=== PATIENT | female | born 1930 | race Caucasian/White ===

== ENCOUNTER 2016-12-10 23:09 | Inpatient (IN) | payer OTHER ==
[~2016-12-10] VITALS: Ht 152.4 cm; Wt 80.6 kg
[~2016-12-10 23:09] MED LIST: ADVIN25050 INH; AMBCR125 PO; AMLO-114 PO; ATV1 PO; CLOP1TAB15 PO; CMBIN INH; CTP2 PO; EFFSR75 PO; MULT-506 PO; PRED10TA PO
[2016-12-10] MEDS ORDERED: METHYLPREDNISOLONE 125 MG VIAL IV STA (23:27)
[2016-12-10] MEDS ORDERED: MAGNESIUM SULFATE 1GM / D5W 1 GM BAG IV STA (23:27)
[2016-12-10] MEDS ORDERED: ALBUT/IPRATROP 3MG/0.5MG NEB 3 ML VIAL INH ONE (23:30)
--- NOTE | 2016-12-10 23:30 | EMERGENCY ROOM VISIT NOTE ---
History Report prepared by Sergey: Agnes Moore Under the Supervision of: Dr. Tim Sinha M.D. First contact with patient: 23:22 Chief Complaint: RESPIRATORY PROBLEMS Stated Complaint: SHORTNESS OF BREATH History of Present Illness The patient is a 86 year old female who presents to the Emergency Room with complaints of constant respiratory problems beginning 2 months ago. She also complains of a cough and feeling weak. She states that her coughing is so bad that she is unable to fall asleep. The patient states that she has COPD and is on 2.5 L of Oxygen at home. Additionally, she takes Mucinex, and uses an inhaler and nebulizer. She also takes 81 mg of Aspirin daily. She reports that she was sick in August and was placed on 3 sets of antibiotics and prednisone. The patient saw a construction materials tester 4 days ago and had an echocardiogram done which was normal. Source of History: patient Onset: 2 months ago Position: other (global) Quality: other (respiratory problems) Timing: constant Associated Symptoms: + cough, + weakness Review of Systems See HPI for pertinent positives & negatives. A total of 10 systems reviewed and were otherwise negative. Past Medical & Surgical Medical Problems: (1) COPD (chronic obstructive pulmonary disease) (2) Hypertension Family History FH: CVA (cerebrovascular accident) Social History Marital Status: Current/Historical Medications Scheduled Albuterol Sulf (Proventil 0.083% 2.5MG/3ML), 2.5 MG INH BID Amlodipine (Norvasc), 10 MG PO DAILY Aspirin (Aspirin Ec), 81 MG PO DAILY Clonidine Hcl (Catapres), 0.2 MG PO BID Fluticasone Prop/Salmeterol (Advair Diskus 250/50 60 Dose), 1 PUFF INH BID Tiotropium [place] (Spiriva Handihaler), 1 CAP INH DAILY Scheduled PRN Albuterol Hfa (Ventolin Hfa), 2 PUFFS INH Q6H PRN for SOB/Wheezing Allergies Coded Allergies: Penicillins (Verified Allergy, Mild, RASH, 12/11/16) Hydrocodone (Verified Allergy, Unknown, 12/11/16) Physical Exam Vital Signs Date Time Temp Pulse Resp B/P (MAP) Pulse Ox O2 Delivery O2 Flow Rate FiO2 12/11/16 01:30 114 20 155/79 93 Nasal Cannula 4.0 12/11/16 01:00 113 25 101/48 98 Nebulizer 12/11/16 00:30 103 22 151/72 99 Nebulizer 12/11/16 00:00 100 17 141/62 92 Nasal Cannula 4.0 12/10/16 23:41 95 Nasal Cannula 4.0 12/10/16 23:30 100 24 96 Nasal Cannula 4.0 12/10/16 23:25 105 12/10/16 23:24 105 12/10/16 23:22 36.9 103 16 151/75 95 Nasal Cannula 4.0 12/10/16 23:22 95 Nasal Cannula 4.0 12/10/16 23:22 95 Nasal Cannula 4.0 Physical Exam GENERAL: Patient is a healthy-appearing well-nourished female HEAD: Normocephalic atraumatic EYES: Ocular movements intact pupils equal and react to light OROPHARYNX mucous membranes are moist no exudates present no erythema or edema present NECK: Supple no nuchal rigidity CHEST: Good equal expansion LUNGS: Bilateral wheezing. CARDIAC: Normal S1 and S2 ABDOMEN: Soft nontender no guarding BACK: No CVA tenderness EXTREMITIES: No pain upon palpation normal muscle strength in all groups no clubbing cyanosis or edema NEURO: Patient is following commands and answering questions appropriately. Alert and oriented x3 Cranial Nerves 2-12 grossly intact Medical Decision & Procedures ER Provider Diagnostic Interpretation: 1 view of chest as reviewed by me: No evidence of pneumonia, congestion, or pneumothorax Laboratory Results 12/10/16 22:45 Red Blood Count 3.93, Mean Corpuscular Volume 95.9, Mean Corpuscular Hemoglobin 29.5, Mean Corpuscular Hemoglobin Concent 30.8, Mean Platelet Volume 9.1, Neutrophils (%) (Auto) 73.6, Lymphocytes (%) (Auto) 16.0, Monocytes (%) (Auto) 8.2, Eosinophils (%) (Auto) 1.2, Basophils (%) (Auto) 0.1, Neutrophils # (Auto) 6.82, Lymphocytes # (Auto) 1.48, Monocytes # (Auto) 0.76, Eosinophils # (Auto) 0.11, Basophils # (Auto) 0.01 12/10/16 22:45 Test 12/10/16 00:00 12/10/16 22:45 Influenza Type A (RT-PCR) Neg for Influ A (NEG) Influenza Type A Antigen Neg for Influ A (NEG) Influenza Type B Antigen Neg for Influ B (NEG) Influenza Type B (RT-PCR) Neg for Influ B (NEG) White Blood Count 9.26 K/uL (4.8-10.8) Red Blood Count 3.93 M/uL (4.2-5.4) Hemoglobin 11.6 g/dL (12.0-16.0) Hematocrit 37.7 % (37-47) Mean Corpuscular Volume 95.9 fL (80-100) Mean Corpuscular Hemoglobin 29.5 pg (25-34) Mean Corpuscular Hemoglobin Concent 30.8 g/dl (32-36) Platelet Count 245 K/uL (130-400) Mean Platelet Volume 9.1 fL (7.4-10.4) Neutrophils (%) (Auto) 73.6 % Lymphocytes (%) (Auto) 16.0 % Monocytes (%) (Auto) 8.2 % Eosinophils (%) (Auto) 1.2 % Basophils (%) (Auto) 0.1 % Neutrophils # (Auto) 6.82 K/uL (1.4-6.5) Lymphocytes # (Auto) 1.48 K/uL (1.2-3.4) Monocytes # (Auto) 0.76 K/uL (0.11-0.59) Eosinophils # (Auto) 0.11 K/uL (0-0.5) Basophils # (Auto) 0.01 K/uL (0-0.2) RDW Standard Deviation 54.1 fL (36.4-46.3) RDW Coefficient of Variation 15.5 % (11.5-14.5) Immature Granulocyte % (Auto) 0.9 % Immature Granulocyte # (Auto) 0.08 K/uL (0.00-0.02) Prothrombin Time 9.4 SECONDS (9.0-12.0) Prothromb Time International Ratio 0.9 (0.9-1.1) Anion Gap 11.0 mmol/L (3-11) Est Creatinine Clear Calc Drug Dose 25.7 ml/min Estimated GFR () 36.2 Estimated GFR (Non- 31.2 BUN/Creatinine Ratio 12.0 (10-20) Calcium Level 8.5 mg/dl (8.5-10.1) Total Bilirubin 0.4 mg/dl (0.2-1) Aspartate Amino Transf (AST/SGOT) 19 U/L (15-37) Alanine Aminotransferase (ALT/SGPT) 28 U/L (12-78) Alkaline Phosphatase 56 U/L (45-117) Total Creatine Kinase 91 U/L (26-192) Creatine Kinase MB 1.8 ng/ml (0.5-3.6) Creatine Kinase MB Ratio 2.0 (0-3.0) Troponin I < 0.015 ng/ml (0-0.045) Pro-B-Type Natriuretic Peptide 163 pg/ml (0-1800) Total Protein 5.9 gm/dl (6.4-8.2) Albumin 2.9 gm/dl (3.4-5.0) Globulin 3.0 gm/dl (2.5-4.0) Albumin/Globulin Ratio 1.0 (0.9-2) Labs reviewed by ED physician. Medications Administered Medications (Trade) Dose Ordered Sig/Manuel Route Start Time Stop Time Status Last Admin Dose Admin Albuterol/ Ipratropium (Duoneb) 12 ml ONE ONCE INH 12/10/16 23:30 12/10/16 23:31 DC 12/10/16 00:08 12 ML Magnesium Sulfate (Magnesium Sulfate) 1 gm NOW STAT IV 12/10/16 23:27 12/10/16 23:31 DC 12/11/16 00:13 1 GM ECG Indication: SOB/dyspnea Rate (beats per minute): 101 Rhythm: sinus tachycardia Findings: no acute ischemic change, no ectopy ED Course 2323: Past medical records reviewed. The patient was evaluated in room C2. A complete history and physical examination was performed. 2327: Ordered Methylprednisolone Sodium Succinate 60 mg IV, Magnesium Sulfate 1 gm IV. 2330: Ordered Duoneb 12 ml INH. 0039: I discussed the patient's case with Dr. Beltran, he has agreed to evaluate the patient for further management and care. 0045: Upon reexamination the patient is resting. I discussed results and treatment plan with the patient. She verbalizes agreement and understanding. Medical Decision Blood Pressure Screening: Patient was found to have an elevated blood pressure and was referred to their primary care doctor for recheck and further treatment Medication Reconciliation: I attest that I have personally reviewed the patient' s current medication list. Etiologies such as infections, reactive airway disease, pneumonia, pneumothorax , COPD, CHF, cardiac ischemia, pulmonary embolism, musculoskeletal, gastrointestinal, as well as others were entertained. This is a 6-year-old female who presents emergency department complaining of shortness of breath. The patient is normally on 2 L of oxygen at home. She has been doctoring with her PCP for the past several months and trying multiple doses of prednisone as well as antibiotics. The patient has been having a steady decline since then. She recently had an echo of her heart done yesterday as well as a CT of the chest was performed several weeks ago. Chest x -ray does not show any evidence of pneumonia congestion or pneumothorax. The patient was given 125 mg Solu-Medrol by EMS. He was also given 1 mg of magnesium and given an hour-long breathing treatment. I did discuss the case with the hospitalist service who agreed to admit the patient. Patient was in agreement with the treatment plan. Consults Time Called: 19 Consulting Physician: Dr. Beltran Returned Call: [phone] I discussed the patient's case with Dr. Beltran, he has agreed to evaluate the patient for further management and care. Impression Primary Impression: Hypoxia Additional Impression: COPD exacerbation Scribe Attestation The scribe's documentation has been prepared under my direction and personally reviewed by me in its entirety. I confirm that the note above accurately reflects all work, treatment, procedures, and medical decision making performed by me. Departure Information Dispostion Being Evaluated By Hospitalist Referrals No Doctor, Assigned (PCP) Patient Instructions My [facility] Problem Qualifiers
[2016-12-10 23:55] LABS: BASO % 0.1 %; BASO ABS # 0.01 K/uL (0-0.2); COMPLETE YES; EOS % 1.2 %; HEMATOCRIT 37.7 % (37-47); IG% 0.9 %; LYMPH ABS # 1.48 K/uL (1.2-3.4); MEAN CELL VOLUME 95.9 fL (80-100); MEAN CORPUSCULAR HEMOGLOBIN 29.5 pg (25-34); MEAN CORPUSCULAR HGB CONC 30.8 g/dl (32-36); MEAN PLATELET VOLUME 9.1 fL (7.4-10.4); MONO % 8.2 %; NEUT % 73.6 %; PLATELET COUNT 245 K/uL (130-400); RED BLOOD COUNT 3.93 M/uL (4.2-5.4); WHITE BLOOD COUNT 9.26 K/uL (4.8-10.8)
[2016-12-11] VITALS (11 sets, daily range): BP systolic 109–151; BP diastolic 61–76; PULSE 82–120; TEMP 36.4–37.6; O2SAT 91–97; Ht 152.4 cm; Wt 80.6 kg
[2016-12-11 00:05] LABS: INR 0.9 (0.9-1.1); PROTHROMBIN TIME (PATIENT) 9.4 SECONDS (9.0-12.0)
[2016-12-11] MEDS ORDERED: ASPI81TA28 PO (00:28)
[2016-12-11] MEDS ORDERED: VNTHFA/IN INH (00:28)
[2016-12-11] MEDS ORDERED: CLON0.2T11 PO (00:28)
[2016-12-11] MEDS ORDERED: SPRIN/30 INH (00:29)
[2016-12-11] MEDS ORDERED: ALBINS/ INH (00:29)
[2016-12-11] MEDS ORDERED: ADVIN25/60 INH (00:29)
[2016-12-11 00:31] LABS: ALKALINE PHOSPHATASE 56 U/L (45-117); ALT/SGPT 28 U/L (12-78); BLOOD UREA NITROGEN 18 mg/dl (7-18); CALCIUM 8.5 mg/dl (8.5-10.1); CARBON DIOXIDE 24 mmol/L (21-32); CHLORIDE 108 mmol/L (98-107); GLUCOSE 131 mg/dl (70-99)
[2016-12-11 00:34] LABS: POTASSIUM 4.6 mmol/L (3.5-5.1); SODIUM 143 mmol/L (136-145)
[2016-12-11 00:43] LABS: AST/SGOT 19 U/L (15-37)
[2016-12-11] MEDS ORDERED: MAGNESIUM HYDROXIDE SUSP 30 ML UDC PO PRN (01:15)
[2016-12-11] MEDS ORDERED: ONDANSETRON INJ 2 MG/ML 2 ML VIAL IV PRN (01:15)
[2016-12-11] MEDS ORDERED: ALUMINUM/MAGNESIUM/SIMETH (MAALOX MAX) 30 ML UDC PO PRN (01:15)
[2016-12-11] MEDS ORDERED: ACETAMINOPHEN 325 MG TAB PO PRN (01:15)
[2016-12-11 01:38] LABS: INFLUENZA A PCR Neg for Influ A (NEG); INFLUENZA B PCR Neg for Influ B (NEG)
--- NOTE | 2016-12-11 02:54 | History and Physical ---
History & Physical Date & Time of Service: Dec 11, 2016 at 02:39 Chief Complaint: Copd Exacerbation Primary Care Physician: Gabrielle Nolen M.D. History of Present Illness Source: patient, family, clinic records This is an 86 year old female with a PMH of severe COPD and chronic respiratory failure on 2L of continuous O2, HTN, HLD, CKD stage 3 - presents with worsening shortness of breath - has had issues with her breathing since August. Has been given doxycycline, prednisone amongst other medications - has followed with pulmonology as well. 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 Currently, breathing is stable; no chest pain, no fevers/chills, no nausea/ vomiting/diarrhea. Family History FH: CVA (cerebrovascular accident) Social History Smoking Status: Former Smoker Marital Status: Immunizations History of Influenza Vaccine: Yes Influenza Vaccine Date: Mar 14, 2007 History of Tetanus Vaccine?: Unknown History of Pneumococcal: Yes Pneumococcal Date: Mar 14, 2007 History of Hepatitis B Vaccine: No Multi-Drug Resistant Organisms History of MDRO: No Allergies Coded Allergies: Penicillins (Verified Allergy, Mild, RASH, 12/11/16) Hydrocodone (Verified Allergy, Unknown, 12/11/16) Home Medications Scheduled Albuterol Sulf (Proventil 0.083% 2.5MG/3ML), 2.5 MG INH BID Amlodipine (Norvasc), 10 MG PO DAILY Aspirin (Aspirin Ec), 81 MG PO DAILY Clonidine Hcl (Catapres), 0.2 MG PO BID Fluticasone Prop/Salmeterol (Advair Diskus 250/50 60 Dose), 1 PUFF INH BID Tiotropium [place] (Spiriva Handihaler), 1 CAP INH DAILY Scheduled PRN Albuterol Hfa (Ventolin Hfa), 2 PUFFS INH Q6H PRN for SOB/Wheezing Review of Systems Constitutional: No fever, No chills, No sweats, No weakness, No fatigue Respiratory: + cough, + sputum, + wheezing, + shortness of breath, + dyspnea on exertion, + dyspnea at rest, No hemoptysis Cardiovascular: + edema (intermittent), No chest pain, No orthopnea, No palpitations Abdomen: No pain, No nausea, No vomiting, No diarrhea, No constipation, No GI bleeding Genitourinary - Female: + urinary frequency, No dysuria, No urinary urgency, No urinary incontinence, No urinary retention, No hematuria Neurologic: No weakness Psychiatric: No depression symptoms, No anxiety, No insomnia Hematologic / Lymphatic: No abnormal bleeding/bruising Integumentary: No rash Allergic / Immunologic: No environmental allergies, No seasonal allergies Physical Exam Vital Signs Date Time Temp Pulse Resp B/P (MAP) Pulse Ox O2 Delivery O2 Flow Rate FiO2 12/11/16 02:19 36.4 120 24 151/67 91 Nasal Cannula 4.0 12/11/16 01:30 114 20 155/79 93 Nasal Cannula 4.0 12/11/16 01:00 113 25 101/48 98 Nebulizer 12/11/16 00:30 103 22 151/72 99 Nebulizer 12/11/16 00:00 100 17 141/62 92 Nasal Cannula 4.0 12/10/16 23:41 95 Nasal Cannula 4.0 12/10/16 23:30 100 24 96 Nasal Cannula 4.0 12/10/16 23:25 105 12/10/16 23:24 105 12/10/16 23:22 36.9 103 16 151/75 95 Nasal Cannula 4.0 12/10/16 23:22 95 Nasal Cannula 4.0 12/10/16 23:22 95 Nasal Cannula 4.0 General Appearance: + mild distress Head: normocephalic, atraumatic Eyes: normal inspection ENT: hearing grossly normal Neck: supple Respiratory/Chest: + respiratory distress (mild respiratory distress), + decreased breath sounds, + wheezing Cardiovascular: no edema, no murmur, + tachycardia Abdomen/GI: normal bowel sounds, non tender, soft Extremities/Musculoskelatal: normal inspection, no calf tenderness, normal capillary refill, no pedal edema, normal range of motion Neurologic/Psych: no motor/sensory deficits, alert, normal mood/affect Skin: normal color Lymphatic: no adenopathy Diagnostics Laboratory Results Results Past 24 Hours Test 12/10/16 22:45 Range/Units White Blood Count 9.26 4.8-10.8 K/uL Red Blood Count 3.93 4.2-5.4 M/uL Hemoglobin 11.6 12.0-16.0 g/dL Hematocrit 37.7 37-47 % Mean Corpuscular Volume 95.9 80-100 fL Mean Corpuscular Hemoglobin 29.5 25-34 pg Mean Corpuscular Hemoglobin Concent 30.8 32-36 g/dl Platelet Count 245 130-400 K/uL Mean Platelet Volume 9.1 7.4-10.4 fL Neutrophils (%) (Auto) 73.6 % Lymphocytes (%) (Auto) 16.0 % Monocytes (%) (Auto) 8.2 % Eosinophils (%) (Auto) 1.2 % Basophils (%) (Auto) 0.1 % Neutrophils # (Auto) 6.82 1.4-6.5 K/uL Lymphocytes # (Auto) 1.48 1.2-3.4 K/uL Monocytes # (Auto) 0.76 0.11-0.59 K/uL Eosinophils # (Auto) 0.11 0-0.5 K/uL Basophils # (Auto) 0.01 0-0.2 K/uL RDW Standard Deviation 54.1 36.4-46.3 fL RDW Coefficient of Variation 15.5 11.5-14.5 % Immature Granulocyte % (Auto) 0.9 % Immature Granulocyte # (Auto) 0.08 0.00-0.02 K/uL Prothrombin Time 9.4 9.0-12.0 SECONDS Prothromb Time International Ratio 0.9 0.9-1.1 Sodium Level 143 136-145 mmol/L Potassium Level 4.6 3.5-5.1 mmol/L Chloride Level 108 98-107 mmol/L Carbon Dioxide Level 24 21-32 mmol/L Anion Gap 11.0 3-11 mmol/L Blood Urea Nitrogen 18 7-18 mg/dl Creatinine 1.50 0.60-1.20 mg/dl Est Creatinine Clear Calc Drug Dose 25.7 ml/min Estimated GFR () 36.2 Estimated GFR (Non- 31.2 BUN/Creatinine Ratio 12.0 10-20 Random Glucose 131 70-99 mg/dl Calcium Level 8.5 8.5-10.1 mg/dl Total Bilirubin 0.4 0.2-1 mg/dl Aspartate Amino Transf (AST/SGOT) 19 15-37 U/L Alanine Aminotransferase (ALT/SGPT) 28 12-78 U/L Alkaline Phosphatase 56 45-117 U/L Total Creatine Kinase 91 26-192 U/L Creatine Kinase MB 1.8 0.5-3.6 ng/ml Creatine Kinase MB Ratio 2.0 0-3.0 Troponin I < 0.015 0-0.045 ng/ml Pro-B-Type Natriuretic Peptide 163 0-1800 pg/ml Total Protein 5.9 6.4-8.2 gm/dl Albumin 2.9 3.4-5.0 gm/dl Globulin 3.0 2.5-4.0 gm/dl Albumin/Globulin Ratio 1.0 0.9-2 Impression Assessment and Plan This is an 86 year old female with a PMH of severe COPD and chronic respiratory failure on 2L of continuous O2, HTN, HLD, CKD stage 3 with COPD exacerbation Acute COPD Exacerbation Acute on Chronic Respiratory Failure +wheezing, worsening shortness of breath hypoxia on admission; uses 2.5L O2 continuously at baseline, now up to 3-4L will give solu-medrol 60mg q8 no abx. for now Xopenox nebulization pulm consultation placed Sinus Tachycardia likely due to solu-medrol and b-agonist use monitor in tele can likely transfer to med/surg once HRs improve CKD stage 3 creatinine at baseline avoid nephrotoxic agents if able HTN continue amlodipine and clonidine blood pressure stable DVT ppx subq heparin FULL CODE Advanced Directives Existing Living Will: Yes Existing Power of Yard Switcher: Yes VTE Prophylaxis VTE Risk Assessment Done? Y/N: Yes Risk Level: Moderate
[2016-12-11] MEDS: LEVALBUTEROL 1.25MG/3ML NEB INH SCH ×4 (03:00→19:20)
[2016-12-11 05:55] LABS: HEMATOCRIT 39.1 % (37-47); MEAN CELL VOLUME 95.1 fL (80-100); MEAN CORPUSCULAR HEMOGLOBIN 29.7 pg (25-34); MEAN CORPUSCULAR HGB CONC 31.2 g/dl (32-36); MEAN PLATELET VOLUME 9.5 fL (7.4-10.4); PLATELET COUNT 208 K/uL (130-400); RED BLOOD COUNT 4.11 M/uL (4.2-5.4); WHITE BLOOD COUNT 10.03 K/uL (4.8-10.8)
[2016-12-11] MEDS ORDERED: METHYLPREDNISOLONE IV 60 MG in SYRINGE 0 ML IV SCH (06:00)
[2016-12-11] MEDS: HEPARIN SOD 5000 UNIT/0.5 ML CARP SQ SCH ×3 (06:08→21:41)
--- NOTE | 2016-12-11 06:23 | DIAGNOSTIC IMAGING REPORT ---
CHEST ONE VIEW PORTABLE CLINICAL HISTORY: pt c/o SOB COMPARISON STUDY 10/13/2007 FINDINGS: Mild bibasilar atelectasis. Lungs otherwise are clear. Minimal cardiac enlargement. IMPRESSION: Mild bibasilar atelectasis. Electronically signed by: Keith Bingham M.D. 12/11/2016 6:22 AM Dictated Date/Time: 12/11/2016 6:17 AM
[2016-12-11 06:34] LABS: BUN/CREATININE RATIO 14.1 (10-20); CALCIUM 8.7 mg/dl (8.5-10.1); CREATININE 1.4 mg/dl (0.60-1.20); POTASSIUM 4.1 mmol/L (3.5-5.1)
[2016-12-11] MEDS: TIOTROPIUM BROMIDE 5 PUFF/90 MCG INH INH SCH (08:13)
[2016-12-11] MEDS: ASPIRIN 81 MG ECTAB PO SCH (08:14)
[2016-12-11] MEDS: AMLODIPINE BESYLATE 5 MG TAB PO SCH (08:14)
[2016-12-11] MEDS: GUAIFENESIN 600 MG TABCR PO SCH ×2 (08:14→21:34)
[2016-12-11] MEDS: CLONIDINE HCL 0.1 MG TAB PO SCH ×2 (08:15→21:37)
[2016-12-11] MEDS ORDERED: FLUTICASONE/SALMETEROL 250/50 (ADVAIR) 14 PUFF/1 INHALER INH SCH (09:00)
--- NOTE | 2016-12-11 10:19 | Progress Note ---
Internal Med Progress Note Date of Service: Dec 11, 2016. Provider Documentation: SUBJECTIVE: mentions that SOB has improved still has congestions back of her throat feels cough is stuck there , can not cough it out has persisted dry cough unable to sleep due to symptom no fever or chills OBJECTIVE: Vital Signs-as noted below Exam: General-no sign of distress Eyes-sclera non icteric ENT-nad Neck-nad Lungs-no rales or wheeze noted Heart-tachycardic Abdomen-soft, non tender Extremities-no lower ext edema Neuro-AAO x3, no focal deficit Lab data as noted below. ASSESSMENT & PLAN: Acute COPD Exacerbation Acute on Chronic Respiratory Failure presented with complain of dry non productive cough for past few months seen by PCP and out pt [employer] [place] [employer] s/p prednisone and oral Doxycycline tx -no improvement mentions after staring on PPI for GERD gave her some benefit presented with hypoxia on admission; uses 2.5L O2 continuously at baseline, now up to 3-4L improved now on 2 L 02 no wheeze noted will d/c Solu-Medrol 60mg q8 PO Prednisone on Mucinex , ordered for flutter valve for clear of secretions no abx. for now-Cxray shows bibasilar atelectasis Xopenox nebulization pulm consultation placed Sinus Tachycardia likely due to solu-medrol and b-agonist use started on PO Prednisone monitor in tele can likely transfer to med/surg once HRs improve CKD stage 3 creatinine at baseline avoid nephrotoxic agents if able HTN continue amlodipine and clonidine blood pressure stable DVT ppx subq heparin FULL CODE DISPOSITION to home when medically stable medicine follow up with Dr Nolen follows with pulmonology at [facility] Vital Signs: Date Time Temp Pulse Resp B/P (MAP) Pulse Ox O2 Delivery O2 Flow Rate FiO2 12/11/16 08:00 Nasal Cannula 2.0 12/11/16 07:16 36.9 105 18 144/72 (96) 93 4.0 12/11/16 07:00 82 18 97 Nasal Cannula 4.0 12/11/16 04:00 Nasal Cannula 4.0 12/11/16 03:45 37.2 110 20 126/62 (83) 91 Nasal Cannula 4.0 12/11/16 02:19 36.4 120 24 151/67 91 Nasal Cannula 4.0 12/11/16 01:30 114 20 155/79 93 Nasal Cannula 4.0 12/11/16 01:00 113 25 101/48 98 Nebulizer 12/11/16 00:30 103 22 151/72 99 Nebulizer 12/11/16 00:00 100 17 141/62 92 Nasal Cannula 4.0 12/10/16 23:41 95 Nasal Cannula 4.0 12/10/16 23:30 100 24 96 Nasal Cannula 4.0 12/10/16 23:25 105 12/10/16 23:24 105 12/10/16 23:22 36.9 103 16 151/75 95 Nasal Cannula 4.0 12/10/16 23:22 95 Nasal Cannula 4.0 12/10/16 23:22 95 Nasal Cannula 4.0 Lab Results: Results Past 24 Hours Test 12/10/16 22:45 12/11/16 05:08 Range/Units White Blood Count 9.26 10.03 4.8-10.8 K/uL Red Blood Count 3.93 4.11 4.2-5.4 M/uL Hemoglobin 11.6 12.2 12.0-16.0 g/dL Hematocrit 37.7 39.1 37-47 % Mean Corpuscular Volume 95.9 95.1 80-100 fL Mean Corpuscular Hemoglobin 29.5 29.7 25-34 pg Mean Corpuscular Hemoglobin Concent 30.8 31.2 32-36 g/dl Platelet Count 245 208 130-400 K/uL Mean Platelet Volume 9.1 9.5 7.4-10.4 fL Neutrophils (%) (Auto) 73.6 % Lymphocytes (%) (Auto) 16.0 % Monocytes (%) (Auto) 8.2 % Eosinophils (%) (Auto) 1.2 % Basophils (%) (Auto) 0.1 % Neutrophils # (Auto) 6.82 1.4-6.5 K/uL Lymphocytes # (Auto) 1.48 1.2-3.4 K/uL Monocytes # (Auto) 0.76 0.11-0.59 K/uL Eosinophils # (Auto) 0.11 0-0.5 K/uL Basophils # (Auto) 0.01 0-0.2 K/uL RDW Standard Deviation 54.1 53.4 36.4-46.3 fL RDW Coefficient of Variation 15.5 15.3 11.5-14.5 % Immature Granulocyte % (Auto) 0.9 % Immature Granulocyte # (Auto) 0.08 0.00-0.02 K/uL Prothrombin Time 9.4 9.0-12.0 SECONDS Prothromb Time International Ratio 0.9 0.9-1.1 Sodium Level 143 139 136-145 mmol/L Potassium Level 4.6 4.1 3.5-5.1 mmol/L Chloride Level 108 107 98-107 mmol/L Carbon Dioxide Level 24 23 21-32 mmol/L Anion Gap 11.0 9.0 3-11 mmol/L Blood Urea Nitrogen 18 20 7-18 mg/dl Creatinine 1.50 1.40 0.60-1.20 mg/dl Est Creatinine Clear Calc Drug Dose 25.7 27.1 ml/min Estimated GFR () 36.2 39.3 Estimated GFR (Non- 31.2 33.9 BUN/Creatinine Ratio 12.0 14.1 10-20 Random Glucose 131 246 70-99 mg/dl Calcium Level 8.5 8.7 8.5-10.1 mg/dl Total Bilirubin 0.4 0.2-1 mg/dl Aspartate Amino Transf (AST/SGOT) 19 15-37 U/L Alanine Aminotransferase (ALT/SGPT) 28 12-78 U/L Alkaline Phosphatase 56 45-117 U/L Total Creatine Kinase 91 26-192 U/L Creatine Kinase MB 1.8 0.5-3.6 ng/ml Creatine Kinase MB Ratio 2.0 0-3.0 Troponin I < 0.015 0-0.045 ng/ml Pro-B-Type Natriuretic Peptide 163 0-1800 pg/ml Total Protein 5.9 6.4-8.2 gm/dl Albumin 2.9 3.4-5.0 gm/dl Globulin 3.0 2.5-4.0 gm/dl Albumin/Globulin Ratio 1.0 0.9-2
[2016-12-11] MEDS ORDERED: COUGH DROP (SUGAR FREE) LOZ 24 LOZ/1 BOX ONE (11:27)
--- NOTE | 2016-12-11 17:58 | Pulmonary Consultation ---
History General Date of Service: Dec 11, 2016. Stated Complaint: Copd Exacerbation HPI The patient is a 86 year old female who presents to [facility] with complaints of Copd Exacerbation. The patient's primary care provider is Gabrielle Nolen M.D.. Ms. Camacho is an 86 year old female history of severe COPD on LTOT of 2L NC, HTN, HLD, CKD stage 3 who present with worsening shortness of breath and dyspnea on exertion. She admits to dry persistent cough associate with nonproductive sputum. She has been on recently treated with doxycyline and taper of prednisone over the last several months. She has been on prednisone 10 mg for several months. She states that she is compliant with pulmonary medications which include Spriva, Advair 250/50 and albuterol prn. Prior to August, she had was able to walk around the house and perform activities of daily living. However, over the last few weeks she has had decreased ET to few feet in the house. She uses walker seat to ambulate. She states that she recently had PFT and TTE, but is unsure of the results. Was prescribed PPI that provided some relief. She denies any fever, chills, chest pain or palpitations, but states that she has no longer can lay flat in bed and falls asleep in chair. She has noticed that she also has increase bilateral lower extremity swelling and edema over the last week. She follows up at [facility] and sees Dr. Nam Nolasco for pulmonology. Previous admission in 2006, she had bronchoscopy and laryngoscopy that showed severe trachobronchitis and chronic inflammation of the vocal cords. In the ED, initial VS were significant for BP 151/75, P 103-120, RR 16-24, Sao2 91-96% on 4L NC. CXR showed bibasilar atelectasis. She admitted for COPD exacerbation. Currently she is on prednisone 40 mg, guafenison 600 mg, Advair 250/50, Spriva and Xopenex. At the time of my examination, she is feeling much better. Denies any shortness of breath. Historian: patient, family Onset: other (Progressive over several months) Severity: moderate Complaint Status: improved, persistent Modifying Factors: exertion Review of Systems Constitutional: reports: weight gain Eyes: reports: no symptoms ENT: reports: sore throat Cardiovascular: reports: as stated in HPI, chest tightness Respiratory: reports: cough, orthopnea, shortness of breath, wheezing, THOMPSON, PND Gastrointestinal: reports: no symptoms Genitourinary - Female: reports: urinary frequency, urinary urgency Musculoskeletal: reports: no symptoms Integumentary: reports: no symptoms Neurologic: reports: no symptoms Psychiatric: reports: no symptoms Endocrine: no symptoms Hematologic / Lymphatic: no symptoms Allergic / Immunologic: denies: environmental allergies, seasonal allergies All Other Symptoms All Other Systems: Reviewed and Negative Past Medical History Past Medical History: COPD, GERD, hypertension, lung disease, renal disease Past Surgical History: Bronchoscopy 2006 Laryngoscopy with biopsy 2006 Family History FH: CVA (cerebrovascular accident) Social History Hx Tobacco Use In Past Year?: No Smoking Status: Former Smoker (Quit 6 years ago. 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 Immunizations History of Influenza Vaccine: Yes Influenza Vaccine Date: Mar 14, 2007 History of Tetanus Vaccine?: Unknown History of Pneumococcal: Yes Pneumococcal Date: Mar 14, 2007 History of Hepatitis B Vaccine: No History of MDRO History of MDRO: No Allergies Coded Allergies: Penicillins (Verified Allergy, Mild, RASH, 12/11/16) Hydrocodone (Verified Allergy, Unknown, 12/11/16) Current Medications Reported Home Medications Medications Dose Route/Sig Max Daily Dose Days Date Category Spiriva Handihaler (Tiotropium Winston) 30 Puff/540 Mcg Aerp 1 Cap INH DAILY 12/11/16 Reported Advair Diskus 250/50 60 Dose (Fluticasone Prop/Salmeterol) 1 Ea Aerp 1 Puff INH BID 12/11/16 Reported Proventil 0.083% 2.5MG/3ML (Albuterol Sulf) 2.5 Mg/3 Ml Nebu 2.5 Mg INH BID 12/11/16 Reported Ventolin Hfa (Albuterol) 200 Puffs/68677 Mcg Aers 2 Puffs INH Q6H PRN 12/11/16 Reported Aspirin Ec (Aspirin) 81 Mg Tab 81 Mg PO DAILY 12/11/16 Reported Catapres (Clonidine Hcl) 0.2 Mg Tab 0.2 Mg PO BID 7/11/17 Reported Norvasc (Amlodipine Besylate) 10 Mg Tab 10 Mg PO DAILY 10/09/06 Reported Physical Physical Exam Vital Signs: Date Time Temp Pulse Resp B/P (MAP) Pulse Ox O2 Delivery O2 Flow Rate FiO2 12/11/16 16:01 94 Nasal Cannula 2.0 12/11/16 15:38 37.6 98 20 111/74 (86) 94 Nasal Cannula 2.0 12/11/16 14:32 88 14 96 Nasal Cannula 4.0 12/11/16 14:00 Nasal Cannula 2.0 12/11/16 13:52 36.5 97 18 125/61 (82) 94 2.0 12/11/16 12:00 Nasal Cannula 2.0 12/11/16 11:38 36.7 103 16 131/76 (94) 93 2.0 12/11/16 08:00 Nasal Cannula 2.0 12/11/16 07:16 36.9 105 18 144/72 (96) 93 4.0 12/11/16 07:00 82 18 97 Nasal Cannula 4.0 12/11/16 04:00 Nasal Cannula 4.0 12/11/16 03:45 37.2 110 20 126/62 (83) 91 Nasal Cannula 4.0 12/11/16 02:19 36.4 120 24 151/67 91 Nasal Cannula 4.0 12/11/16 01:30 114 20 155/79 93 Nasal Cannula 4.0 12/11/16 01:00 113 25 101/48 98 Nebulizer 12/11/16 00:30 103 22 151/72 99 Nebulizer 12/11/16 00:00 100 17 141/62 92 Nasal Cannula 4.0 12/10/16 23:41 95 Nasal Cannula 4.0 12/10/16 23:30 100 24 96 Nasal Cannula 4.0 12/10/16 23:25 105 12/10/16 23:24 105 12/10/16 23:22 36.9 103 16 151/75 95 Nasal Cannula 4.0 12/10/16 23:22 95 Nasal Cannula 4.0 12/10/16 23:22 95 Nasal Cannula 4.0 General Appearance: WELL-APPEARING, NO APPARENT DISTRESS (Speaking in full sentences, nonlabored breathing) Head: NORMOCEPHALIC, ATRAUMATIC Eyes: PERRLA, EOMI, SCLERAE NORMAL, CONJUNCTIVAE NORMAL ENT: NORMAL MOUTH EXAM, NORMAL THROAT EXAM Neck: NORMAL RANGE OF MOTION, SUPPLE Respiratory: BREATH SOUNDS NORMAL, CLEAR TO AUSCULTATION, NO RESPIRATORY DISTRESS, NO TENDERNESS Cardiovasular: REGULAR RATE/RHYTHM, NORMAL S1S2, NO GALLOP, NO RUB Abdomen: NON TENDER, NORMAL BOWEL SOUNDS, NO REBOUND, NO MASSES, NO GUARDING Lower Extremities: edema Edema: RLE, Bilateral LE (3+) Pulses: dorsalis pedis (R) (2+), dorsalis pedis (L) (2+) Neuro: ALERT, ORIENTED x 3 Psychiatric: NORMAL AFFECT, NO SUICIDAL IDEATION Diagnostics Labs Results Past 24 Hours Test 12/10/16 22:45 12/11/16 05:08 Range/Units White Blood Count 9.26 10.03 4.8-10.8 K/uL Red Blood Count 3.93 4.11 4.2-5.4 M/uL Hemoglobin 11.6 12.2 12.0-16.0 g/dL Hematocrit 37.7 39.1 37-47 % Mean Corpuscular Volume 95.9 95.1 80-100 fL Mean Corpuscular Hemoglobin 29.5 29.7 25-34 pg Mean Corpuscular Hemoglobin Concent 30.8 31.2 32-36 g/dl Platelet Count 245 208 130-400 K/uL Mean Platelet Volume 9.1 9.5 7.4-10.4 fL Neutrophils (%) (Auto) 73.6 % Lymphocytes (%) (Auto) 16.0 % Monocytes (%) (Auto) 8.2 % Eosinophils (%) (Auto) 1.2 % Basophils (%) (Auto) 0.1 % Neutrophils # (Auto) 6.82 1.4-6.5 K/uL Lymphocytes # (Auto) 1.48 1.2-3.4 K/uL Monocytes # (Auto) 0.76 0.11-0.59 K/uL Eosinophils # (Auto) 0.11 0-0.5 K/uL Basophils # (Auto) 0.01 0-0.2 K/uL RDW Standard Deviation 54.1 53.4 36.4-46.3 fL RDW Coefficient of Variation 15.5 15.3 11.5-14.5 % Immature Granulocyte % (Auto) 0.9 % Immature Granulocyte # (Auto) 0.08 0.00-0.02 K/uL Prothrombin Time 9.4 9.0-12.0 SECONDS Prothromb Time International Ratio 0.9 0.9-1.1 Sodium Level 143 139 136-145 mmol/L Potassium Level 4.6 4.1 3.5-5.1 mmol/L Chloride Level 108 107 98-107 mmol/L Carbon Dioxide Level 24 23 21-32 mmol/L Anion Gap 11.0 9.0 3-11 mmol/L Blood Urea Nitrogen 18 20 7-18 mg/dl Creatinine 1.50 1.40 0.60-1.20 mg/dl Est Creatinine Clear Calc Drug Dose 25.7 27.1 ml/min Estimated GFR () 36.2 39.3 Estimated GFR (Non- 31.2 33.9 BUN/Creatinine Ratio 12.0 14.1 10-20 Random Glucose 131 246 70-99 mg/dl Calcium Level 8.5 8.7 8.5-10.1 mg/dl Total Bilirubin 0.4 0.2-1 mg/dl Aspartate Amino Transf (AST/SGOT) 19 15-37 U/L Alanine Aminotransferase (ALT/SGPT) 28 12-78 U/L Alkaline Phosphatase 56 45-117 U/L Total Creatine Kinase 91 26-192 U/L Creatine Kinase MB 1.8 0.5-3.6 ng/ml Creatine Kinase MB Ratio 2.0 0-3.0 Troponin I < 0.015 0-0.045 ng/ml Pro-B-Type Natriuretic Peptide 163 0-1800 pg/ml Total Protein 5.9 6.4-8.2 gm/dl Albumin 2.9 3.4-5.0 gm/dl Globulin 3.0 2.5-4.0 gm/dl Albumin/Globulin Ratio 1.0 0.9-2 Diagnostic Radiology CXR: 12/11/2016 Mild bibasilar atelectasis. Impression Assessment and Plan Acute on chronic hypoxemic respiratory failure COPD exacerbation Recommendations -Lower extremity doppler to rule out VTE . Pulmonary emboli are often missed in patients with COPD exacerbations. -TTE to rule evaluate EF and evaluate for pulmonary HTN as she is has chronic hypoxia. With low BNP however, I suspect the systolic CHF in unlikely. -Agree with bronchodilators as well as prednisone 40 mg daily. Would increase Advair from 250/50 to 500/50. Continue with Spiriva. -Will start empiric treatment with Levaquin for one week. Will start IV, but can switch to PO if clinically improves. -Follow up sputum cultures. -Continue with supplemental O2 to maintain SaO2 88-92% as well as flutter valve for pulmonary toilet. -This is most likely progression of COPD. I would like to obtain records for full PFT as this would done as an outpatient in September. This would help determine the severity of her disease and her baseline. -Continue medical management per primary team. Please feel free to contact me if you have any further question. Appreciate the consult.
[2016-12-11] MEDS ORDERED: LEVOFLOXACIN / D5W 500 MG in PREMIXED IN D5W 100 ML IV SCH (18:30)
--- NOTE | 2016-12-11 19:29 | DIAGNOSTIC IMAGING REPORT ---
ULTRASOUND VENOUS DOPPLER LWR EXT BILA CLINICAL HISTORY: Leg swelling COMPARISON STUDY: No previous studies for comparison. FINDINGS: Real-time and color flow Doppler imaging were performed. Flow was seen within the femoral, popliteal and calf veins with no intraluminal thrombus demonstrated. The saphenous vein is patent. There is a nonspecific 17 mm cystic lesion with thin the right anterior upper thigh. IMPRESSION: No evidence of lower extremity DVT. Electronically signed by: Kaz Go M.D. 12/11/2016 7:28 PM Dictated Date/Time: 12/11/2016 7:26 PM
[2016-12-11] MEDS: FLUTICASONE/SALMETEROL (ADVAIR) 500/50 INH 14 PUFF INH SCH (21:34)
[2016-12-12] MEDS: LEVALBUTEROL 1.25MG/3ML NEB INH SCH ×4 (02:22→19:21)
[2016-12-12] MEDS: HEPARIN SOD 5000 UNIT/0.5 ML CARP SQ SCH ×2 (05:50→13:48)
[2016-12-12 07:17] VITALS: BP 121/85; PULSE 85; PULSE 87; TEMP 36.5; O2SAT 93
[2016-12-12] MEDS: TIOTROPIUM BROMIDE 5 PUFF/90 MCG INH INH SCH (08:46)
[2016-12-12] MEDS: FLUTICASONE/SALMETEROL (ADVAIR) 500/50 INH 14 PUFF INH SCH ×2 (08:46→20:07)
[2016-12-12] MEDS: GUAIFENESIN 600 MG TABCR PO SCH ×2 (08:47→20:07)
[2016-12-12] MEDS: AMLODIPINE BESYLATE 5 MG TAB PO SCH (08:48)
[2016-12-12] MEDS: ASPIRIN 81 MG ECTAB PO SCH (08:48)
[2016-12-12] MEDS: CLONIDINE HCL 0.1 MG TAB PO SCH ×2 (08:48→20:07)
--- NOTE | 2016-12-12 11:31 | ECHOCARDIOGRAM REPORT ---
*NOTICE TO RECEIVING [employer] AG[employer]Y This information is strictly Confidential and protected under [place] law. [place] law prohibits you from making any further disclosure of this information unless further disclosure is expressly permitted by the written consent of the person to whom it pertains or is authorized by law. A general authorization for the release of medical or other information is not sufficient for this purpose. Hospital accepts no responsibility if the information is made available to any other person, INCLUDING THE PATIENT. Interpretation Summary * Name: Isis FLANNERY NOVEMBER Study Date: 12/12/2016 07:34 AM BP: 155/79 mmHg * Patient Location: .[id number]\1 HR: 89 * : 1930 (M/d/yyyy) Gender: Female Height: 60 in * Age: 86 yrs Ethnicity: CA Weight: 177 lb * Ordering Physician: Amy Hdz * Referring Physician: Self, Referred * Performed By: Bboby Foote RCS * * Reason For Study: Dyspnea * BSA: 1.8 m2 * -- Conclusions -- * 1. Technically limited study * 2. Small LV cavity size. Normal LV wall thickness. * 3. Normal LV systolic function. LVEF 65-70%. No regional wall motion abnormalities. Grade I diastolic dysfunction. * 3. RV not well visualized. * 4. No significant valvular pathology visualized. * 5. Normal estimated CVP. Procedure Details * Left Ventricle The left ventricular cavity is small. There is normal left ventricular wall thickness. Ejection Fraction = 65-70%. No regional wall motion abnormalities noted. * Right Ventricle The right ventricle is not well visualized. * Atria The left atrial size is normal. Right atrium not well visualized. There is no evidence of atrial septal defect, but resolution does not allow assessment for a patent foramen ovale. * Mitral Valve The mitral valve is not well visualized. There is no mitral valve stenosis. Significant mitral regurgitation is absent. * Tricuspid Valve The tricuspid valve is not well visualized. Significant tricuspid regurgitation is absent. * Aortic Valve The aortic valve is not well visualized. No hemodynamically significant valvular aortic stenosis. There is no significant aortic regurgitation. * Pulmonic Valve The pulmonary valve is inadequately visualized, but the Doppler data is adequate for interpretation. There is no pulmonic valvular stenosis. There is no pulmonic valvular regurgitation. * Great Vessels The aortic root and proximal ascending aorta are normal sized. * Pericardium/Pleural There is no pericardial effusion. * Great Vessels Normal inferior vena cava size and collapsability with sniff indicates a normal right atrial pressure of 3 mmHg * Left Ventricular Diastolic Function Grade I diastolic dysfunction, (abnormal relaxation pattern). * * MMode 2D Measurements and Calculations * IVSd 0.88 cm * * LVIDd 4.2 cm * LVIDs 3.1 cm * LVPWd 0.91 cm * * IVS/LVPW 0.97 * FS 27.7 % * EDV(Teich) 80.0 ml * ESV(Teich) 36.8 ml * EF(Teich) 54.1 % * * EDV(cubed) 75.8 ml * ESV(cubed) 28.7 ml * EF(cubed) 62.2 % * * LV mass(C)d 118.9 grams * LV mass(C)dI 67.1 grams/m\S\2 * * SV(Teich) 43.3 ml * SI(Teich) 24.4 ml/m\S\2 * SV(cubed) 47.1 ml * SI(cubed) 26.6 ml/m\S\2 * * LVAd ap4 18.9 cm\S\2 * LVLd ap4 6.9 cm * EDV(MOD-sp4) 44.3 ml * EDV(sp4-el) 44.0 ml * LVAs ap4 9.7 cm\S\2 * LVLs ap4 5.8 cm * ESV(MOD-sp4) 15.1 ml * ESV(sp4-el) 13.8 ml * EF(MOD-sp4) 66.0 % * EF(sp4-el) 68.5 % * * LVAd ap2 17.3 cm\S\2 * LVLd ap2 6.9 cm * EDV(MOD-sp2) 37.1 ml * EDV(sp2-el) 36.7 ml * LVAs ap2 8.0 cm\S\2 * LVLs ap2 5.5 cm * ESV(MOD-sp2) 9.8 ml * ESV(sp2-el) 9.8 ml * EF(MOD-sp2) 73.7 % * EF(sp2-el) 73.2 % * * LVLd %diff 0.81 % * EDV(MOD-bp) 40.3 ml * LVLs %diff -4.60 % * ESV(MOD-bp) 12.2 ml * EF(MOD-bp) 69.7 % * * SV(MOD-sp4) 29.3 ml * SI(MOD-sp4) 16.5 ml/m\S\2 * * SV(MOD-sp2) 27.3 ml * SI(MOD-sp2) 15.4 ml/m\S\2 * * SV(MOD-bp) 28.1 ml * SI(MOD-bp) 15.8 ml/m\S\2 * * SV(sp4-el) 30.1 ml * SI(sp4-el) 17.0 ml/m\S\2 * * SV(sp2-el) 26.9 ml * SI(sp2-el) 15.2 ml/m\S\2 * * * * * Doppler Measurements and Calculations * MV E max ministerio 103.3 cm/sec * MV A max ministerio 116.4 cm/sec * * MV E/A 0.89 * * MV dec time 0.17 sec * * Ao V2 max 187.3 cm/sec * Ao max PG 14.0 mmHg * Ao max PG (full) 8.8 mmHg * * LV V1 max PG 5.2 mmHg * * LV V1 max 114.3 cm/sec * * * *
--- NOTE | 2016-12-12 15:01 | Pulmonology Progress Note ---
Pulmonary Progress Note Date of Service Dec 12, 2016. Subjective Patient seen and examined. Feeling better. Denies any chest pain, shortness of breath. Continue to have dry cough, but feels like is improving. Using flutter valve. She is requesting compression stockings. Objective Vital Signs: as noted below. Laboratory Data: as noted below. Diagnostic Impression(s): as noted below. TTE: * -- Conclusions -- * 1. Technically limited study * 2. Small LV cavity size. Normal LV wall thickness. * 3. Normal LV systolic function. LVEF 65-70%. No regional wall motion abnormalities. Grade I diastolic dysfunction. * 3. RV not well visualized. * 4. No significant valvular pathology visualized. * 5. Normal estimated CVP. b/l LE Doppler: negative for DVT Physical Exam: General: AAOx3, NAD Eyes: PERRL, EOMI ENT: normal nasal turbinates, no discharge Neck: supple, NT, no JVD Lungs: good air entry bilaterally, no crackles, no wheezes Heart: S1, S2, RRR Abdomen: obese/NT/ND, BS+ Extremities: +3 pitting edema, chronic venous changes b/l LE Neuro: no neurological deficits, sensation intact Assessment & Plan Acute on chronic hypoxemic respiratory failure COPD exacerbation Diastolic Dysfunction Recommendations -c/w with bronchodilators as well as prednisone 40 mg daily, Advair 500/50 and Spiriva. -C/2 with Levaquin for one week. Will start IV, but can switch to PO if clinically improves. Day 1/7. -Follow up sputum cultures. -Continue with supplemental O2 to maintain SaO2 88-92% as well as flutter valve for pulmonary toilet. -Consider lasix for diuresis as diastolic dysfunction maybe contributing to her symptoms. -Continue medical management per primary team. Vitals / Labs / Impressions Vital Signs (Last Documented): Last Vital Signs Documentation Date Time Temp Pulse Resp B/P (MAP) Pulse Ox O2 Delivery O2 Flow Rate FiO2 12/12/16 08:00 Nasal Cannula 2.0 12/12/16 07:17 36.5 85 20 121/85 (97) 93 Laboratory (Past 24 Hrs):
[2016-12-12] MEDS ORDERED: NURSING VERBAL MED ORDER ONE (15:15)
[2016-12-12 15:18] VITALS: BP 113/70; PULSE 88; TEMP 36.9; O2SAT 93
[2016-12-12] MEDS ORDERED: PANTOprazole SOD 40 MG TAB PO ONE (15:30)
[2016-12-12] MEDS: LEVOFLOXACIN 250 MG TAB PO SCH (15:46)
[2016-12-12 16:08] VITALS: O2SAT 93
--- NOTE | 2016-12-12 17:42 | Progress Note ---
Internal Med Progress Note Date of Service: Dec 12, 2016. Provider Documentation: SUBJECTIVE: cough and SOB has improved markedly no fever or chills OBJECTIVE: Vital Signs-as noted below Exam: General-no sign of distress Eyes-sclera non icteric ENT-nad Neck-nad Lungs-no rales or wheeze noted Heart-tachycardic Abdomen-soft, non tender Extremities-no lower ext edema Neuro-AAO x3, no focal deficit Lab data as noted below. 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 tx -no improvement mentions after staring on PPI for GERD gave her some benefit hypoxia has improved on 2 L 02 -baseline started on PO Prednisone taper on Mucinex , ordered for flutter valve for clear of secretions -pt mentions improvement of symptom PO Levaquin for empiric tx Xopenox nebulization pulm consultation placed-appreciate input ECHO ; shows grade 1 diastolic dysfunction Lower ext Doppler negative for DVT CKD stage 3 creatinine at baseline avoid nephrotoxic agents if able HTN continue amlodipine and clonidine blood pressure stable DVT ppx subq heparin FULL CODE DISPOSITION possible discharge home in next 1-2 days medicine follow up with Dr Nolen follows with pulmonology at [facility] Vital Signs: Date Time Temp Pulse Resp B/P (MAP) Pulse Ox O2 Delivery O2 Flow Rate FiO2 12/12/16 16:08 93 Nasal Cannula 2.0 12/12/16 15:18 36.9 88 20 113/70 (84) 93 Nasal Cannula 2.0 12/12/16 08:00 Nasal Cannula 2.0 12/12/16 07:17 36.5 85 20 121/85 (97) 93 Nasal Cannula 2.0 12/12/16 07:17 87 18 93 Nasal Cannula 2.0 12/11/16 23:56 36.8 90 20 109/70 (83) 91 Nasal Cannula 2.0 12/11/16 23:49 Nasal Cannula 12/11/16 21:30 36.8
[2016-12-12 19:21] VITALS: PULSE 82; O2SAT 95
[2016-12-13] VITALS (9 sets, daily range): BP systolic 107–149; BP diastolic 56–78; PULSE 78–108; TEMP 36.4–36.9; O2SAT 91–97
[2016-12-13] MEDS: LEVALBUTEROL 1.25MG/3ML NEB INH SCH ×4 (02:08→18:46)
[2016-12-13] MEDS: PANTOprazole SOD 40 MG TAB PO SCH (08:17)
[2016-12-13] MEDS: FLUTICASONE/SALMETEROL (ADVAIR) 500/50 INH 14 PUFF INH SCH ×2 (08:17→21:32)
[2016-12-13] MEDS: LEVOFLOXACIN 250 MG TAB PO SCH (08:17)
[2016-12-13] MEDS: TIOTROPIUM BROMIDE 5 PUFF/90 MCG INH INH SCH (08:17)
[2016-12-13] MEDS: AMLODIPINE BESYLATE 5 MG TAB PO SCH (08:18)
[2016-12-13] MEDS: GUAIFENESIN 600 MG TABCR PO SCH ×2 (08:18→21:32)
[2016-12-13] MEDS: ASPIRIN 81 MG ECTAB PO SCH (08:18)
[2016-12-13] MEDS: CLONIDINE HCL 0.1 MG TAB PO SCH ×2 (08:18→21:33)
[2016-12-13] MEDS ORDERED: PRT40 PO (15:56)
[2016-12-13] MEDS ORDERED: LVQ250 PO (15:56)
[2016-12-13] MEDS ORDERED: PRD10 PO (15:56)
--- NOTE | 2016-12-13 16:18 | Pulmonology Progress Note ---
Pulmonary Progress Note Date of Service Dec 13, 2016. Attending Dr. Hdz Subjective Patient seen and examined today. She is states that she feels the same. A little better than yesterday. She still c/o dry nonproductive cough and wheezing. She is using flutter valve which she thinks is helping. Still unable to lay flat and got a reclining chair so that she could sleep in. She also complains of b/l LE swelling. Objective O/E: VS reviewed and documented below. Gen: out of bed to chair, speaking in full sentences, NAD HEENT: AT/NC, PERRL, EOMI Neck: Supple/NT CVS: S1, S2, RRR Lungs: expiratory wheezing b/l Abd: obese/NT Ext: b/l LE +2 pitting edema, no cyanosis, no clubbing Assessment & Plan Acute on chronic hypoxemic respiratory failure COPD exacerbation Diastolic Dysfunction Recommendations -c/w with bronchodilators as well as prednisone taper, Advair 500/50 and Spiriva. -C/w with Levaquin for one week. Will start IV, but can switch to PO if clinically improves. Day 3/. -Continue with supplemental O2 to maintain SaO2 88-92% as well as flutter valve for pulmonary toilet. -Consider lasix for diuresis as diastolic dysfunction maybe contributing to her symptoms. -Continue medical management per primary team. Data Medications: Current Inpatient Medications Medications (Trade) Dose Ordered Sig/Manuel Route Start Time Stop Time Status Last Admin Dose Admin Guaifenesin (Mucinex Contr Rel Tab) 600 mg Q12 PO 12/11/16 09:00 01/10/17 08:59 12/13/16 08:18 600 MG Amlodipine Besylate (Norvasc Tab) 10 mg DAILY PO 12/11/16 09:00 01/10/17 08:59 12/13/16 08:18 10 MG Aspirin (Ecotrin Tab) 81 mg DAILY PO 12/11/16 09:00 01/10/17 08:59 12/13/16 08:18 81 MG Tiotropium Eden (Spiriva Handihaler Inhaler) 1 puff DAILY INH 12/11/16 09:00 01/10/17 08:59 12/13/16 08:17 1 PUFF Clonidine HCl (Catapres Tab) 0.2 mg BID PO 12/11/16 09:00 01/10/17 08:59 12/13/16 08:18 0.2 MG Levalbuterol (Xopenex 1.25MG/ 3ML Neb) 1.25 mg Q6R INH 12/11/16 03:00 01/10/17 02:59 12/13/16 14:22 1.25 MG Acetaminophen (Tylenol Tab) 650 mg Q4H PRN PO 12/11/16 01:15 01/10/17 01:14 Al Hydrox/Mg Hydrox/Simethicone (Maalox Max Susp) 15 ml Q4H PRN PO 12/11/16 01:15 01/10/17 01:14 Magnesium Hydroxide (Milk Of Magnesia Susp) 30 ml Q12H PRN PO 12/11/16 01:15 01/10/17 01:14 Ondansetron HCl (Zofran Inj) 4 mg Q6H PRN IV 12/11/16 01:15 01/10/17 01:14 Salmeterol Xinafoate/ Fluticasone (Advair Diskus 500/50 Inh) 1 puff BID INH 12/11/16 21:00 01/10/17 20:59 12/13/16 08:17 1 PUFF Levofloxacin (Levaquin Tab) 250 mg DAILY@11 PO 12/12/16 15:00 12/18/16 14:59 12/13/16 08:17 250 MG Pantoprazole Sodium (Protonix Tab) 40 mg QAM PO 12/13/16 09:00 01/12/17 08:59 12/13/16 08:17 40 MG Prednisone (PredniSONE TAB) 40 mg Taper DAILY PO 12/13/16 09:00 12/16/16 08:59 12/13/16 08:17 40 MG Vital Signs: Date Time Temp Pulse Resp B/P (MAP) Pulse Ox O2 Delivery O2 Flow Rate FiO2 12/13/16 15:10 96 92 12/13/16 14:44 36.4 86 20 124/62 (82) 97 Nasal Cannula 2.0 12/13/16 14:22 82 16 92 Nasal Cannula 2.0 12/13/16 08:45 Nasal Cannula 2.0 12/13/16 07:21 36.7 84 20 138/78 (98) 91 Nasal Cannula 2.0 12/13/16 07:19 78 16 92 Nasal Cannula 2.0 12/13/16 00:21 36.9 92 18 107/56 (73) 94 Nasal Cannula 2.0 12/13/16 00:05 93 Nasal Cannula 2.0 12/12/16 19:21 82 16 95 Nasal Cannula 2.0 Laboratory Results: No new labs.
--- NOTE | 2016-12-13 18:41 | Progress Note ---
Internal Med Progress Note Date of Service: Dec 13, 2016. Provider Documentation: SUBJECTIVE: SOB has improved has non productive cough still having generalized weakness no fever or chills OBJECTIVE: Vital Signs-as noted below Exam: General-no sign of distress Eyes-sclera non icteric ENT-nad Neck-nad Lungs-no rales or wheeze noted Heart-tachycardic Abdomen-soft, non tender Extremities-no lower ext edema Neuro-AAO x3, no focal deficit Lab data as noted below. 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 tx -no improvement mentions after staring on PPI for GERD gave her some benefit hypoxia has improved on 2 L 02 -baseline started on PO Prednisone taper on Mucinex , ordered for flutter valve for clear of secretions -pt mentions improvement of symptom PO Levaquin for empiric tx Xopenox nebulization pulm consultation placed-appreciate input ECHO ; shows grade 1 diastolic dysfunction Lower ext Doppler negative for DVT CKD stage 3 creatinine at baseline avoid nephrotoxic agents if able HTN continue amlodipine and clonidine blood pressure stable DVT ppx subq heparin FULL CODE DISPOSITION appreciate PT/OT eval pt will benefit with SNF at [facility] referral made transfer [facility] in AM Daughter in law updated Vital Signs: Date Time Temp Pulse Resp B/P (MAP) Pulse Ox O2 Delivery O2 Flow Rate FiO2 12/13/16 16:00 Nasal Cannula 2.0 Humidified Oxygen 12/13/16 15:10 96 92 12/13/16 14:44 36.4 86 20 124/62 (82) 97 Nasal Cannula 2.0 12/13/16 14:22 82 16 92 Nasal Cannula 2.0 12/13/16 08:45 Nasal Cannula 2.0 12/13/16 07:21 36.7 84 20 138/78 (98) 91 Nasal Cannula 2.0 12/13/16 07:19 78 16 92 Nasal Cannula 2.0 12/13/16 00:21 36.9 92 18 107/56 (73) 94 Nasal Cannula 2.0 12/13/16 00:05 93 Nasal Cannula 2.0 12/12/16 19:21 82 16 95 Nasal Cannula 2.0
--- NOTE | 2016-12-13 18:42 | Discharge Instructions ---
Discharge Instructions Date of Service Dec 13, 2016. Admission Reason for Admission: Copd Exacerbation Discharge Discharge Diagnosis / Problem: COPD EXACERBTION Discharge Goals Goal(s): Increase independence, Improve disease control, Therapeutic intervention Activity Recommendations Activity Level: Assistance Required Therapies: Physical Therapy, Occupational Therapy . Additional Information Patient informed of condition: Yes Advance Directives: No DNR: No Level of Care: Skilled Communicable Disease: No Prognosis: Stable Hdz Catheter: No Instructions / Follow-Up Instructions / Follow-Up FOLLOW UP WITH FAMILY PHYSICIAN AFTER DISCHARGE FORM REHAB Current Hospital Diet Patient's current hospital diet: Regular Diet Discharge Diet Recommended Diet: Regular Diet Pending Studies Studies pending at discharge: no Medical Emergencies . Who to Call and When: Medical Emergencies: If at any time you feel your situation is an emergency, please call 911 immediately. . Non-Emergent Contact Non-Emergency issues call your: Primary Care Provider . . "Provider Documentation" section prepared by Elizabeth Mckeon. . Core Measure Problem Core Measures: None
[2016-12-14] MEDS: LEVALBUTEROL 1.25MG/3ML NEB INH SCH ×3 (01:45→14:24)
[2016-12-14 07:07] VITALS: BP 134/77; PULSE 80; TEMP 36.8; O2SAT 91
[2016-12-14 07:16] VITALS: PULSE 83; O2SAT 92
[2016-12-14] MEDS: PANTOprazole SOD 40 MG TAB PO SCH (08:28)
[2016-12-14] MEDS: FLUTICASONE/SALMETEROL (ADVAIR) 500/50 INH 14 PUFF INH SCH (08:28)
[2016-12-14] MEDS: TIOTROPIUM BROMIDE 5 PUFF/90 MCG INH INH SCH (08:28)
[2016-12-14] MEDS: CLONIDINE HCL 0.1 MG TAB PO SCH (08:29)
[2016-12-14] MEDS: GUAIFENESIN 600 MG TABCR PO SCH (08:29)
[2016-12-14] MEDS: AMLODIPINE BESYLATE 5 MG TAB PO SCH (08:29)
[2016-12-14] MEDS: ASPIRIN 81 MG ECTAB PO SCH (08:29)
[2016-12-14] MEDS: LEVOFLOXACIN 250 MG TAB PO SCH (08:30)
--- NOTE | 2016-12-14 11:10 | Progress Note ---
Subjective Date of Service: Dec 14, 2016. Subjective Pt evaluation today including: conversation w/ patient, physical exam, lab review, review of studies, review of inpatient medication list Saw/examined the patient in room 263 Back to baseline O2 cough improving c/o edema of LE Problem List Medical Problems: (1) COPD exacerbation Status: Acute (2) Hypoxia Status: Acute Review of Systems Constitutional: No fever, No chills Respiratory: + cough (improving), + sputum, No wheezing, No shortness of breath , No dyspnea on exertion, No dyspnea at rest, No hemoptysis Cardiac: + edema, No chest pain, No palpitations Abdomen: No pain, No nausea, No vomiting, No diarrhea Female : No dysuria, No urinary frequency Medications Current Inpatient Medications Medications (Trade) Dose Ordered Sig/Manuel Route Start Time Stop Time Status Last Admin Dose Admin Guaifenesin (Mucinex Contr Rel Tab) 600 mg Q12 PO 12/11/16 09:00 01/10/17 08:59 12/14/16 08:29 600 MG Amlodipine Besylate (Norvasc Tab) 10 mg DAILY PO 12/11/16 09:00 01/10/17 08:59 12/14/16 08:29 10 MG Aspirin (Ecotrin Tab) 81 mg DAILY PO 12/11/16 09:00 01/10/17 08:59 12/14/16 08:29 81 MG Tiotropium [place] (Spiriva Handihaler Inhaler) 1 puff DAILY INH 12/11/16 09:00 01/10/17 08:59 12/14/16 08:28 1 PUFF Clonidine HCl (Catapres Tab) 0.2 mg BID PO 12/11/16 09:00 01/10/17 08:59 12/14/16 08:29 0.2 MG Levalbuterol (Xopenex 1.25MG/ 3ML Neb) 1.25 mg Q6R INH 12/11/16 03:00 01/10/17 02:59 12/14/16 07:16 1.25 MG Acetaminophen (Tylenol Tab) 650 mg Q4H PRN PO 12/11/16 01:15 01/10/17 01:14 Al Hydrox/Mg Hydrox/Simethicone (Maalox Max Susp) 15 ml Q4H PRN PO 12/11/16 01:15 01/10/17 01:14 Magnesium Hydroxide (Milk Of Magnesia Susp) 30 ml Q12H PRN PO 12/11/16 01:15 01/10/17 01:14 Ondansetron HCl (Zofran Inj) 4 mg Q6H PRN IV 12/11/16 01:15 01/10/17 01:14 Salmeterol Xinafoate/ Fluticasone (Advair Diskus 500/50 Inh) 1 puff BID INH 12/11/16 21:00 01/10/17 20:59 12/14/16 08:28 1 PUFF Levofloxacin (Levaquin Tab) 250 mg DAILY@11 PO 12/12/16 15:00 12/18/16 14:59 12/14/16 08:30 250 MG Pantoprazole Sodium (Protonix Tab) 40 mg QAM PO 12/13/16 09:00 01/12/17 08:59 12/14/16 08:28 40 MG Prednisone (PredniSONE TAB) 30 mg Taper DAILY PO 12/13/16 09:00 12/16/16 08:59 12/14/16 08:29 30 MG Objective Vital Signs Date Time Temp Pulse Resp B/P (MAP) Pulse Ox O2 Delivery O2 Flow Rate FiO2 12/14/16 09:00 Nasal Cannula 2.0 12/14/16 07:16 83 20 92 Nasal Cannula 2.0 12/14/16 07:07 36.8 80 18 134/77 (96) 91 Nasal Cannula 2.0 12/14/16 00:00 Nasal Cannula 2.0 12/13/16 23:06 36.8 97 20 124/58 (80) 93 Nasal Cannula 2.0 12/13/16 20:00 Nasal Cannula 2.0 12/13/16 18:46 108 20 96 Nasal Cannula 2.0 12/13/16 16:00 Nasal Cannula 2.0 Humidified Oxygen 12/13/16 15:10 96 92 12/13/16 14:44 36.4 86 20 124/62 (82) 97 Nasal Cannula 2.0 12/13/16 14:22 82 16 92 Nasal Cannula 2.0 Physical Exam General Appearance: no apparent distress Respiratory/Chest: no respiratory distress, no accessory muscle use, + wheezing Cardiovascular: regular rate, rhythm, no murmur Extremities: normal range of motion, non-tender, no calf tenderness, + swelling (+2 pitting edema b/l LE) Neurologic/Psychiatric: no motor/sensory deficits, alert, normal mood/affect Assessment and Plan This is an 86 year old female with a PMH of severe COPD and chronic respiratory failure on 2L of continuous O2, HTN, HLD, CKD stage 3 with COPD exacerbation Acute COPD Exacerbation Acute on Chronic Respiratory Failure 12/14 patient improving steroids are tapered down to prednisone 40mg on baseline O2 of 2L plan for d/c to [facility] +wheezing, worsening shortness of breath hypoxia on admission; uses 2.5L O2 continuously at baseline, now up to 3-4L will give solu-medrol 60mg q8 no abx. for now Xopenox nebulization pulm consultation placed Sinus Tachycardia - improved likely due to solu-medrol and b-agonist use monitor in tele can likely transfer to med/surg once HRs improve CKD stage 3 creatinine at baseline avoid nephrotoxic agents if able HTN continue amlodipine and clonidine blood pressure stable DVT ppx subq heparin FULL CODE
--- NOTE | 2016-12-14 11:13 | Discharge Summary ---
Discharge Summary Date of Service Dec 14, 2016. Discharge Summary Admission Date: Dec 11, 2016 at 01:16 Discharge Date: Dec 14, 2016 Discharge Disposition: snf facility Principal Diagnosis: Acute COPD exacerbation Acute on Chronic Respiratory Failure Medication Reconciliation New Medications: Levofloxacin (Levofloxacin) 250 Mg Tab 250 MG PO DAILY for 4 Days, #4 TAB Pantoprazole (Pantoprazole Sodium) 40 Mg Tab 40 MG PO QAM for 30 Days, #30 TAB Prednisone (Prednisone) 10 Mg Tab 30 MG PO UD, #30 TAB PREDNISONE 30 MG DAILY FOR 2 DAYS PREDNONSE 20 MG DAILY FOR 2 DAYS PREDNONSE 10 MG DAILY FOR 2 DAYS PREDNONSE 5 MG DAILY FOR 2 DAYS THEN STOP Continued Medications: Albuterol Hfa (Ventolin Hfa) 200 Puffs/44340 Mcg Aers 2 PUFFS INH Q6H PRN for SOB/Wheezing Albuterol Sulf (Proventil 0.083% 2.5MG/3ML) 2.5 Mg/3 Ml Nebu 2.5 MG INH BID, EA Amlodipine (Norvasc) 10 Mg Tab 10 MG PO DAILY, 0 Refills Aspirin (Aspirin Ec) 81 Mg Tab 81 MG PO DAILY Clonidine Hcl (Catapres) 0.2 Mg Tab 0.2 MG PO BID, TAB Fluticasone Prop/Salmeterol (Advair Diskus 250/50 60 Dose) 1 Ea Aerp 1 PUFF INH BID, INHALER Tiotropium [place] (Spiriva Handihaler) 30 Puff/540 Mcg Aerp 1 CAP INH DAILY, INHALER Admission Information HPI (per Admitting provider): This is an 86 year old female with a PMH of severe COPD and chronic respiratory failure on 2L of continuous O2, HTN, HLD, CKD stage 3 - presents with worsening shortness of breath - has had issues with her breathing since August. Has been given doxycycline, prednisone amongst other medications - has followed with pulmonology as well. 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 Currently, breathing is stable; no chest pain, no fevers/chills, no nausea/ vomiting/diarrhea. Physical Exam (per Admitting): General Appearance: + mild distress Head: normocephalic, atraumatic Eyes: normal inspection ENT: hearing grossly normal Neck: supple Respiratory/Chest: + respiratory distress (mild respiratory distress), + decreased breath sounds, + wheezing Cardiovascular: no edema, no murmur, + tachycardia Abdomen/GI: normal bowel sounds, non tender, soft Extremities/Musculoskelatal: normal inspection, no calf tenderness, normal capillary refill, no pedal edema, normal range of motion Neurologic/Psych: no motor/sensory deficits, alert, normal mood/affect Skin: normal color Lymphatic: no adenopathy Hospital Course This is an 86 year old female with a PMH of severe COPD and chronic respiratory failure on 2L of continuous O2, HTN, HLD, CKD stage 3 with COPD exacerbation Acute COPD Exacerbation Acute on Chronic Respiratory Failure 12/14 patient improving steroids are tapered down to prednisone 40mg on baseline O2 of 2L plan for d/c to [facility] +wheezing, worsening shortness of breath hypoxia on admission; uses 2.5L O2 continuously at baseline, now up to 3-4L will give solu-medrol 60mg q8 no abx. for now Xopenox nebulization pulm consultation placed Sinus Tachycardia - improved likely due to solu-medrol and b-agonist use monitor in tele can likely transfer to med/surg once HRs improve CKD stage 3 creatinine at baseline avoid nephrotoxic agents if able HTN continue amlodipine and clonidine blood pressure stable DVT ppx subq heparin FULL CODE Total time spent on discharge = 35 minutes This includes examination of the patient, discharge planning, medication reconciliation, and communication with other providers. Discharge Instructions Follow-up with family physician after discharge from rehab
[2016-12-14 14:24] VITALS: PULSE 94; O2SAT 94
[2016-12-14 15:26] VITALS: BP 134/77; PULSE 94; TEMP 36.8; O2SAT 94
[2016-12-15 01:29] LABS: BORDETELLA PERTUSSIS SOURCE Swab
== END 2016-12-14 16:00 | DRG 189 ==
LOC: EDBD 23:09 → C.EDC 23:10 → C.2T 12-11 01:16 → ENRESERV 12-11 01:29 → C.MS2W 12-11 13:18
PROVIDERS: ADMIT Family Medicine; ATTEND Family Medicine
DX: J96.21 Acute and chronic respiratory failure with hypoxia (principal); J44.1 Chronic obstructive pulmonary disease with (acute) exacerbation; Z99.81 Dependence on supplemental oxygen; Z79.82 Long term (current) use of aspirin; I12.9 Hypertensive chronic kidney disease with stage 1 through stage 4 chronic kidney disease, or unspecified chronic kidney disease; N18.3 Chronic kidney disease, stage 3 (moderate); E78.5 Hyperlipidemia, unspecified; Z87.891 Personal history of nicotine dependence; R00.0 Tachycardia, unspecified; T38.0X5A Adverse effect of glucocorticoids and synthetic analogues, initial encounter; Y92.009 Unspecified place in unspecified non-institutional (private) residence as the place of occurrence of the external cause

== ENCOUNTER → 2017-01-14 | Outpatient (CLI) | payer OTHER ==
[~2017-01-14] MED LIST changes: +ADVIN25/60 INH; -ADVIN25050 INH; +ALBINS/ INH; -AMBCR125 PO; +ASPI81TA28 PO; -ATV1 PO; +CLON0.2T11 PO; -CLOP1TAB15 PO; -CMBIN INH; -CTP2 PO; -EFFSR75 PO; +LVQ250 PO; -MULT-506 PO; +PRD10 PO; -PRED10TA PO; +PRT40 PO; +SPRIN/30 INH; +VNTHFA/IN INH
[2017-01-14 13:13] LABS: BLOOD UREA NITROGEN 18 mg/dl (7-18); BUN/CREATININE RATIO 10.4 (10-20); CALCIUM 8.2 mg/dl (8.5-10.1); CARBON DIOXIDE 30 mmol/L (21-32); CHLORIDE 108 mmol/L (98-107); GLUCOSE 151 mg/dl (70-99); POTASSIUM 3.8 mmol/L (3.5-5.1); SODIUM 142 mmol/L (136-145)
[2017-01-14 13:18] LABS: PHOSPHORUS 2.7 mg/dl (2.5-4.9)
--- NOTE | 2017-02-08 10:36 | CODING QUERY NO DIAGNOSIS ---
TREATMENT RENDERED WITHOUT A DIAGNOSIS To promote full compliance with coding requirements relating to patient care, physician participation is requested in all cases of [employer] uncertainty. Please assist us with providing a diagnosis/symptom for the test(s) below: A diagnosis/symptom was not documented on your Order. A valid diagnosis/symptom is required to bill all insurances. Please remember that we are unable to code a diagnosis of rule out, probable, possible, questionable, or suspected. Tests that require a diagnosis: * RENAL PROFILE DIAGNOSIS: Provider Signature: Date: Thank you Liz [employer] Information Management Once completed, please kindly fax back to [phone] For questions please call [phone]
== END | disposition home or self-care (01) ==
LOC: C.LABSPEC 13:11
PROVIDERS: ATTEND Family Medicine
DX: N18.3 Chronic kidney disease, stage 3 (moderate) (principal)